=== PATIENT | female | born 1935 | race Asian ===

== ENCOUNTER 2016-05-26 14:08 | Outpatient (RCR) | payer OTHER | END 2016-06-16 | disposition home or self-care (01) | LOC: PTY 14:08 | PROVIDERS: ATTEND Internal Medicine | DX: M25.552 Pain in left hip (principal); M19.90 Unspecified osteoarthritis, unspecified site; E11.9 Type 2 diabetes mellitus without complications | CPT/HCPCS: 97110; 97140; G0283 ==

== ENCOUNTER 2016-06-17 10:31 | Outpatient (RCR) | payer OTHER | END 2016-07-14 | disposition home or self-care (01) | LOC: PTY 10:31 | PROVIDERS: ATTEND Internal Medicine | DX: M25.552 Pain in left hip (principal) | CPT/HCPCS: 97110; 97116; 97140; G0283 ==

== ENCOUNTER 2016-07-17 14:30 | Outpatient (RCR) | payer OTHER | END 2016-08-14 | disposition home or self-care (01) | LOC: PTY 14:30 | PROVIDERS: ATTEND Internal Medicine | DX: M25.552 Pain in left hip (principal); M79.662 Pain in left lower leg | CPT/HCPCS: 97110; 97140; G0283 ==

== ENCOUNTER 2016-09-04 14:00 | Outpatient (RCR) | payer OTHER | END 2016-09-13 | disposition home or self-care (01) | LOC: PTY 14:00 | PROVIDERS: ATTEND Internal Medicine | DX: M25.552 Pain in left hip (principal); M79.662 Pain in left lower leg; M54.5 Low back pain; G89.29 Other chronic pain; E11.9 Type 2 diabetes mellitus without complications; M19.90 Unspecified osteoarthritis, unspecified site; M25.512 Pain in left shoulder | CPT/HCPCS: 97110; 97140; 97162; G0283 ==

== ENCOUNTER 2016-09-16 10:30 | Outpatient (RCR) | payer OTHER | END 2016-10-14 | disposition home or self-care (01) | LOC: PTY 10:30 | PROVIDERS: ATTEND Internal Medicine | DX: M79.662 Pain in left lower leg (principal); M25.512 Pain in left shoulder | CPT/HCPCS: 97110; 97140; G0283 ==

== ENCOUNTER 2016-10-15 10:15 | Outpatient (RCR) | payer OTHER | END 2016-11-13 | disposition home or self-care (01) | LOC: PTY 10:15 | PROVIDERS: ATTEND Internal Medicine | DX: M79.662 Pain in left lower leg (principal); M25.512 Pain in left shoulder | CPT/HCPCS: 97110; 97140; G0283 ==

== ENCOUNTER 2017-04-14 14:03 | Outpatient (RCR) | payer OTHER | END 2017-04-15 | disposition home or self-care (01) | LOC: PTY 14:03 | DX: M48.062 Spinal stenosis, lumbar region with neurogenic claudication (principal); M79.662 Pain in left lower leg | CPT/HCPCS: 97110; 97140; 97162; G0283 ==

== ENCOUNTER 2017-04-29 13:16 | Outpatient (RCR) | payer OTHER | END 2017-05-16 | disposition home or self-care (01) | LOC: PTY 13:16 | DX: M48.062 Spinal stenosis, lumbar region with neurogenic claudication (principal); M79.662 Pain in left lower leg | CPT/HCPCS: 97110; 97140; G0283 ==

== ENCOUNTER 2017-06-04 09:45 | Outpatient (RCR) | payer OTHER | END 2017-06-16 | disposition home or self-care (01) | LOC: PTY 09:45 | DX: M48.062 Spinal stenosis, lumbar region with neurogenic claudication (principal) | CPT/HCPCS: 97035; 97110; 97140; G0283 ==

== ENCOUNTER 2017-06-23 10:50 | Outpatient (RCR) | payer OTHER | END 2017-07-14 | disposition home or self-care (01) | LOC: PTY 10:50 | DX: M48.062 Spinal stenosis, lumbar region with neurogenic claudication (principal) | CPT/HCPCS: 97110; 97112; 97140; G0283 ==

== ENCOUNTER 2017-07-28 10:18 | Outpatient (RCR) | payer OTHER | END 2017-08-14 | disposition home or self-care (01) | LOC: PTY 10:18 | DX: M48.062 Spinal stenosis, lumbar region with neurogenic claudication (principal) | CPT/HCPCS: 97032; 97110; 97140; G0283 ==